=== PATIENT | male | born 2005 | race African-American/Black ===

== ENCOUNTER 2025-07-07 19:18 | Emergency (ER) | payer OTHER, MEDICAID ==
[~2025-07-07] VITALS: Ht 177.8 cm; Wt 72.7 kg
[2025-07-07 20:59] LABS: COVID AG,FIA SOURCE NASAL SWAB
[2025-07-07 21:17] LABS: RAPID GROUP A STREP PRELIM. NEGATIVE (NEGATIVE)
[2025-07-07 21:21] LABS: INFLUENZA TYPE A NEGATIVE FOR TYPE A (NEGATIVE); INFLUENZA TYPE B NEGATIVE FOR TYPE B (NEGATIVE)
[2025-07-07 21:21] LABS: SARS-COV2 (COVID) ANTIGEN,FIA Negative (Negative)
[2025-07-07] MEDS ORDERED: IBUP-1492 PO (21:26)
[2025-07-07] MEDS ORDERED: AMOX-457 PO (21:26)
[2025-07-07] MEDS ORDERED: LOPE-232 PO (21:27)
[2025-07-07] MEDS ORDERED: ONDA-104 PO (21:32)
[2025-07-07] MEDS: AMOX TR/POT CLAV 875 MG/125 MG TABLET PO ONE (21:36)
[2025-07-07] MEDS: IBUPROFEN 600 MG TABLET PO ONE (21:36)
[2025-07-07] MEDS: LOPERAMIDE HCL 2 MG CAPSULE PO ONE (21:36)
[2025-07-07 21:37] VITALS: BP 117/96; PULSE 66; RESP 17; TEMP 98.4; O2SAT 100
== END 2025-07-07 21:43 | disposition home or self-care (01) ==
LOC: EMS 19:18
DX: J32.9 Chronic sinusitis, unspecified (principal); R11.2 Nausea with vomiting, unspecified; R19.7 Diarrhea, unspecified; J45.909 Unspecified asthma, uncomplicated; Z20.822 Contact with and (suspected) exposure to COVID-19
CPT/HCPCS: 71046; 87081; 87430; 87804; 99284